=== PATIENT | male | born 1955 | race Caucasian/White ===

== ENCOUNTER 2020-03-12 16:02 | Emergency (ER) | payer OTHER ==
[2020-03-12 16:57] VITALS: BP 136/97; PULSE 93; TEMP 98; BMI 32.8
[2020-03-12] MEDS ORDERED: KETOROLAC TROMETHAMINE 30 MG/1 ML VIAL IM ONE (18:41)
[2020-03-12] MEDS ORDERED: KETOROLAC TROMETHAMINE 30 MG/1 ML VIAL ONE (18:41)
== END 2020-03-12 18:49 | disposition home or self-care (01) ==
LOC: JER 16:02 → JERFT 16:02
PROC: 3E0233Z Introduction of Anti-inflammatory into Muscle, Percutaneous Approach (ICD-10-PCS; principal; 2020-03-12)
DX: S22.41XA Multiple fractures of ribs, right side, initial encounter for closed fracture (principal)
CPT/HCPCS: 71046-TC-FY; 71101-TC-RT-FY; 99284-25